=== PATIENT | male | born 1990 | race Caucasian/White ===

== ENCOUNTER 2018-05-02 19:54 | Emergency (ER) | payer SELFPAY ==
--- NOTE | 2018-05-02 20:01 | EDPHY ---
H & P Time Seen by Provider: 05/02/18 19:58 HPI/ROS: CHIEF COMPLAINT: Erratic behavior HISTORY OF PRESENT ILLNESS: Patient is a 27-year-old man with a history of bipolar who was in argument with his brother. He locked his brother outside. His brother called police it when they arrived the patient was combative with police and had to be restrained. EMS gave 5 mg of Versed IM and then 2.5 mg Versed IV. Patient admits to take lithium but is also post be taking Seroquel and Abilify. He denies complaints of pain or injury or recent illness. He was taste by police at 1 point briefly. Barbs have fallen out spontaneously through the clothing. Severity: Moderate Modifying factors: None REVIEW OF SYSTEMS: Unable to obtain secondary to condition EXAM: GENERAL: Restrained, calm HEAD: Atraumatic, normocephalic. EYES: Pupils equal round and reactive to light, extraocular movements intact, sclera anicteric, conjunctiva are normal. ENT: TMs normal, nares patent, oropharynx clear without exudates. Moist mucous membranes. NECK: Normal range of motion, supple without lymphadenopathy or JVD. LUNGS: Breath sounds clear to auscultation bilaterally and equal. No wheezes rales or rhonchi. HEART: Regular rate and rhythm without murmurs, rubs or gallops. ABDOMEN: Soft, nontender, normoactive bowel sounds. No guarding, no rebound. No masses appreciated. BACK: No CVA tenderness, no spinal tenderness, step-offs or deformities EXTREMITIES: Normal range of motion, no pitting or edema. No clubbing or cyanosis. NEUROLOGICAL: Cranial nerves II through XII grossly intact. Normal speech, restrained. 5/5 strength, normal movement in all extremities, normal sensation , normal reflexes PSYCH: Somewhat sleepy but arousable, answers most questions appropriately, somewhat disorganized. SKIN: Warm, dry, normal turgor, no visible rashes or lesions. No visible wounds from the Taser barbs Source: Patient Exam Limitations: No limitations - Medical/Surgical History Hx Asthma: No Hx Chronic Respiratory Disease: No Hx Diabetes: No Hx Cardiac Disease: No Hx Renal Disease: No Hx Cirrhosis: No Hx Alcoholism: No Hx HIV/AIDS: No - Family History Significant Family History: No pertinent family hx - Social History Smoking Status: Never smoked Alcohol Use: None Constitutional: Initial Vital Signs Temperature (C) 36.5 C 05/02/18 20:14 Heart Rate 128 H 05/02/18 20:14 Respiratory Rate 18 05/02/18 20:14 Blood Pressure 120/56 L 05/02/18 20:14 O2 Sat (%) 92 05/02/18 20:14 O2 Delivery Mode Room Air Allergies/Adverse Reactions: No Known Allergies Allergy (Unverified 05/02/18 20:13) Home Medications: Medication Instructions Recorded Aripiprazole 05/02/18 [place] Carbonate 05/02/18 Quetiapine Fumarate 05/02/18 Medical Decision Making ED Course/Re-evaluation: 9:00 p.m. The patient is awake and alert. He is arguing with police in flipping them off. They would like to take him to intermediate. He has no medical complaints at this time. His lab work is unremarkable. He does not wish to give urine sample. Police would like to incarcerated him and states that he if he needs psychiatric evaluation he can have it done there. Differential Diagnosis: Partial list of the Differential diagnosis considered include but were not limited to; polysubstance abuse, psychosis, Taser injury and although unlikely based on the history and physical exam, I also considered the, infection. - Data Points Laboratory Results: Laboratory Results 05/02/18 20:24 05/02/18 20:24 05/02/18 05/02/18 20:24 20:24 WBC 11.17 10^3/uL H 10^3/uL (3.80-9.50) RBC 5.52 10^6/uL 10^6/uL (4.40-6.38) Hgb 15.9 g/dL g/dL (13.7-17.5) Hct 47.3 % % (40.0-51.0) MCV 85.7 fL fL (81.5-99.8) MCH 28.8 pg pg (27.9-34.1) MCHC 33.6 g/dL g/dL (32.4-36.7) RDW 11.9 % % (11.5-15.2) Plt Count 250 10^3/uL 10^3/uL (150-400) MPV 11.5 fL fL (8.7-11.7) Neut % (Auto) 75.6 % H % (39.3-74.2) Lymph % (Auto) 14.0 % L % (15.0-45.0) Pope % (Auto) 8.8 % % (4.5-13.0) Eos % (Auto) 0.7 % % (0.6-7.6) Baso % (Auto) 0.5 % % (0.3-1.7) Nucleat RBC Rel Count 0.0 % % (0.0-0.2) Absolute Neuts (auto) 8.45 10^3/uL H 10^3/uL (1.70-6.50) Absolute Lymphs (auto) 1.56 10^3/uL 10^3/uL (1.00-3.00) Absolute Monos (auto) 0.98 10^3/uL H 10^3/uL (0.30-0.80) Absolute Eos (auto) 0.08 10^3/uL 10^3/uL (0.03-0.40) Absolute Basos (auto) 0.06 10^3/uL 10^3/uL (0.02-0.10) Absolute Nucleated RBC 0.00 10^3/uL 10^3/uL (0-0.01) Immature Gran % 0.4 % % (0.0-1.1) Immature Gran # 0.04 10^3/uL 10^3/uL (0.00-0.10) Sodium 139 mEq/L mEq/L (135-145) Potassium 4.0 mEq/L mEq/L (3.5-5.2) Chloride 102 mEq/L mEq/L (97-110) Carbon Dioxide 13 mEq/l L mEq/l (22-31) Anion Gap 24 mEq/L H mEq/L (6-14) BUN 16 mg/dL mg/dL (7-23) Creatinine 1.5 mg/dL H mg/dL (0.7-1.3) Estimated GFR 56 Glucose 117 mg/dL H mg/dL (70-100) Calcium 10.4 mg/dL mg/dL (8.5-10.4) [place] 1.5 mEq/L H mEq/L (0.6-1.2) Ethyl Alcohol < 10 mg/dL mg/dL (0-10) Departure - Departure Disposition: Law Enforcement/Court/Residential Clinical Impression: Polysubstance abuse, Bipolar 1 disorder, History of Taser shock Condition: Fair Instructions: Bipolar Disorder (ED), Polysubstance Abuse (ED) Additional Instructions: Medically cleared for intermediate Referrals: Patient,NotPresent [Primary Care Provider] - As per Instructions [facility],. [Clinic] - 2-3 days, if not improved
[2018-05-02 21:15] LABS: PLATELET COUNT 250 10^3/uL (150-400)
[2018-05-02 21:20] VITALS: BP 132/74
== END 2018-05-02 21:20 ==
LOC: EEVIPCON 19:54
DX: F19.10 Other psychoactive substance abuse, uncomplicated (principal); F31.9 Bipolar disorder, unspecified
CPT/HCPCS: G0480